=== PATIENT | female | born 1940 | race Caucasian/White ===

== ENCOUNTER → 2017-05-24 | Outpatient (CLI) | payer MEDICARE, OTHER ==
[~2017-05-24] MED LIST: HUMA100I SC; LANTUS2P SC; LEVO.025 PO; LISI20 PO; MAGN400T PO; MYCO500 PO; NYST500KS SWISH-SWAL; PANT40P PO; PARI1 PO; SULF-154 PO; TACR1 PO; VALG450 PO
--- NOTE | 2017-05-24 13:39 | RADRPT ---
EXAM DATE/TIME: 05/24/2017 12:48 [place] COMPARISON: No previous studies available for comparison. INDICATIONS : Rejection. MEDICAL HISTORY : Hypercholesterolemia. Hypothyroidism. Diabetes. SURGICAL HISTORY : Cholecystectomy. Hysterectomy. Colon surgery. Renal transplant, 2016. ENCOUNTER: Initial ACUITY: 1 day PAIN SCORE: 0/10 LOCATION: Right lower quadrant MEASUREMENTS: TRANSPLANT KIDNEY: 11.6 x 6.6 x 6.4 cm LOCATION: Right lower quadrant. ARCUATE ARTERIES RESISTIVE INDEX: Upper - 0.7 Mid - 0.7 Lower - 0.7 RA/EIA Ratio: 1.8 MAIN RENAL ARTERY VELOCITY: (cm/sec): 162 MAIN RENAL VEIN: Patent EXTERNAL ILIAC ARTERY VELOCITY (cm/sec): 92 * NORMAL DOPPLER FINDINGS Arcuate arteries - RI = 0.6 - 0.8 Renal artery = under 200 cm/sec Renal vein = May be monophasic with continuous flow or demonstrate some pulsatility with cardiac cycl e FINDINGS: TRANSPLANT KIDNEY: Normal cortical thickness and echotexture. No hydronephrosis, stone, or mass. No peritransplant flu id collection. URINARY BLADDER: Within normal limits given the degree of distension. CONCLUSION: 1. Unremarkable ultrasound and Doppler evaluation of right lower quadrant transplant kidney. Bairon Capps MD on May 24, 2017 at 13:35 Board Certified Radiologist. This report was verified electronically.
== END ==
LOC: HRAD 12:18
PROVIDERS: ATTEND Surgery
DX: Z94.0 Kidney transplant status (principal); E83.30 Disorder of phosphorus metabolism, unspecified; E83.40 Disorders of magnesium metabolism, unspecified; B96.20 Unspecified Escherichia coli [E. coli] as the cause of diseases classified elsewhere; Z79.899 Other long term (current) drug therapy
CPT/HCPCS: 36415; 76776; 80053; 80061; 80197; 81001; 83036; 83735; 84100; 85025; 87077; 87086; 87186; 87799; G0463; 99211